=== PATIENT | female | born 1985 | race Two or more races ===

== ENCOUNTER 2016-10-08 11:08 | Emergency (ER) | payer OTHER ==
[~2016-10-08] VITALS: Ht 167.6 cm; Wt 96.6 kg
[2016-10-08 11:35] VITALS: BP 132/80
== END 2016-10-08 13:47 | disposition home or self-care (01) ==
LOC: ER 11:08
DX: O20.0 Threatened abortion (principal); Z3A.10 10 weeks gestation of pregnancy
CPT/HCPCS: 36415; 76801; 84702